=== PATIENT | female | born 2000 | race Caucasian/White ===

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

== ENCOUNTER → 2021-12-08 | Emergency (ER) | payer MEDICAID ==
[~2021-12-08] VITALS: Ht 170 cm; Wt 59.0 kg
[~2021-12-08] MED LIST changes: -ACET-77 PO; +ACET-78 PO; +KETOROLAC 60 MG/2 ML VIAL IM ONE; +ONDA4TAB11 PO; +ONDANSETRON 4 MG (ZOFRAN) ORAL DISSOLVE TAB PO STA; -PANT40TA3; +PANT40TA52
--- NOTE | 2021-12-08 13:31 | ED Headache ---
General Stated Complaint: MIGRAINE,N/V Source: patient Exam Limitations: no limitations History of Present Illness Date Seen by Provider: Dec 08, 2021 Time Seen by Provider: 13:09 Initial Comments The patient presents to the ER by private conveyance from home with chief complaint of a migraine headache for the past 1 day with nausea sweats chills body aches. She says is worse than her typical headache. Typically she can take 2 Tylenol 500 mg and will break her migraine but this persisted throughout the night. She has had no known sick exposures. She is not been vaccinated for COVID but she has for influenza. She is not having diarrhea. She is not having a cough or shortness of air. She has a strong history of migraines that are similar to this headache. No urinary symptoms. Her last menstrual period was November 16 however she is very irregular typically going 2 months between periods. She has been off of contraceptives for at least 6 months. She has a history of IBS and asthma. She typically follows with Dr. Aceves and Pebbles PANDYA at [facility]. Allergies and Home Medications Allergies Coded Allergies: latex (Verified Allergy, Mild, Rash, 05/20/19) Patient Home Medication List Home Medication List Reviewed: Yes Review of Systems Review of Systems Constitutional: No chills, No diaphoresis, No fever, No malaise Eyes: Denies Blindness, Denies Drainage Ears, Nose, Mouth, Throat: denies ear pain, denies ear discharge Respiratory: No cough, No short of breath Cardiovascular: No chest pain, No edema Gastrointestinal: No abdominal pain, No constipation, No diarrhea; nausea, vomiting Genitourinary: No discharge, No dysuria, No frequency, No hematuria Musculoskeletal: No back pain, No joint pain All Other Systems Reviewed Negative Unless Noted: Yes Past Pcqrwtf-Qctjkv-Eqbzrv Hx Patient Social History Tobacco Use?: No Use of E-Cig and/or Vaping dev: No Substance use?: No Immunizations Up To Date Tetanus Booster (TDap): Less than 5yrs PED Vaccines UTD: Yes Seasonal Allergies Seasonal Allergies: No Past Medical History Surgeries: No Respiratory: Yes Asthma Cardiac: No Heart Murmur Neurological: Yes Reproductive Disorders: No Sexually Transmitted Disease: No Genitourinary: No Gastrointestinal: No Gastroesophageal Reflux Musculoskeletal: No Endocrine: No HEENT: No Cancer: No Psychosocial: No Integumentary: No Blood Disorders: No Adverse Reaction/Blood Tranf: No Family Medical History Alcoholism (mother) Substance abuse (mother) Physical Exam Vital Signs Vital Signs - First Documented 12/08/21 13:33 Temp 35.8 Pulse 96 Resp 16 B/P (MAP) 124/83 (97) Pulse Ox 95 O2 Delivery Room Air Capillary Refill : Height, Weight, BMI Height: 5'7.00" Weight: 157lbs. 0.0oz. 71.212404qz; 25.00 BMI Method:Stated General Appearance: WD/WN, no apparent distress HEENT: PERRL/EOMI, normal ENT inspection, TMs normal; No pharynx normal (Mild retropharyngeal erythema); other (Her hair is wet from bathing) Neck: full range of motion, supple, normal inspection Cardiovascular: normal peripheral pulses, regular rate, rhythm Respiratory: lungs clear, normal breath sounds, no respiratory distress, no accessory muscle use Psychiatric: alert, oriented x 3 Coordination/Gait: normal gait Procedures/Interventions Suture Size: 5-0 Progress/Results/Core Measures Results/Orders Lab Results Laboratory Tests Test 12/08/21 13:26 Range/Units Influenza Type A (RT-PCR) Not Detected Not Detecte Influenza Type B (RT-PCR) Not Detected Not Detecte SARS-CoV-2 RNA (RT-PCR) Not Detected Not Detecte My Orders Orders - SYDNIE HUANG Ketorolac Injection (Toradol Injection) (12/08/21 13:30) Ondansetron Oral Dissolve Tab (Zofran (12/08/21 13:22) Covid 19 Inhouse Test (12/08/21 13:22) Influenza A And B By Pcr (12/08/21 13:22) Urine Bedside (12/08/21 13:22) Medications Given in ED Current Medications Medications Dose Ordered Sig/Lizzie Route Start Time Stop Time Status Last Admin Dose Admin Ketorolac Tromethamine 60 mg ONCE ONCE IM 12/08/21 13:30 12/08/21 13:31 DC 12/08/21 13:32 60 MG Vital Signs/I&O 12/08/21 13:33 Temp 35.8 Pulse 96 Resp 16 B/P (MAP) 124/83 (97) Pulse Ox 95 O2 Delivery Room Air Progress Progress Note #1: Time: 13:32 Progress Note Concern for all viral syndrome causing the migraine headache so we will give her some Toradol Zofran and tested for Covid and influenza. Lungs are clear no signs of asthma attack. Bedside . No urinary symptoms so no UA. Bedside is negative Progress Note #2: Time: 14:01 Progress Note Patient was laying down with her eyes closed. She sets up smiling stating that she is feeling significantly better. No nausea. She is ready to go home. We will provide her with some Zofran and a note for work tomorrow if she needs it. Departure Impression Primary Impression: Migraine Qualified Codes: G43.001 - Migraine without aura, not intractable, with status migrainosus Additional Impression: Viral syndrome Disposition: HOME, SELF-CARE Condition: Improved Departure-Patient Inst. Decision time for Depature: 14:01 Referrals: [facility] (PCP/Family) Primary Care Physician Patient Instructions: Migraines (DC) Add. Discharge Instructions: Drink plenty of fluids. Zofran 1 tablet every 6 hours under the tongue as necessary for nausea and or vomiting. Tylenol and ibuprofen as necessary for headache. Get some sleep and if you needed there will be a work note to take tomorrow off as well. Scripts Ondansetron (Ondansetron Odt) 4 Mg Tab.rapdis 4 MG PO Q6H PRN for NAUSEA/VOMITING, #8 TAB 0 Refills Prov: SYDNIE HUANG 12/08/21 Work/School Note: Work Release Form Date Seen in the Emergency Department: Dec 08, 2021 Return to Work: Dec 10, 2021 Restrictions: No Restrictions SYDNIE HUANG Dec 08, 2021 13:31
[2021-12-08 14:07] VITALS: BP 119/80
== END ==
LOC: EDUNIT# 12:59 → ER 13:01
DX: B34.9 Viral infection, unspecified (principal); G43.001 Migraine without aura, not intractable, with status migrainosus; J45.909 Unspecified asthma, uncomplicated; Z91.040 Latex allergy status; Z20.822 Contact with and (suspected) exposure to COVID-19
CPT/HCPCS: 84703; 87636; 99284

== ENCOUNTER 2022-04-29 13:53 | Emergency (ER) | payer MEDICAID ==
[~2022-04-29 13:53] MED LIST changes: -KETOROLAC 60 MG/2 ML VIAL IM ONE; -ONDANSETRON 4 MG (ZOFRAN) ORAL DISSOLVE TAB PO STA
[2022-04-29 14:08] VITALS: BP 115/77
--- NOTE | 2022-04-29 14:36 | ED Lower Extremity ---
General Chief Complaint: Lower Extremity Stated Complaint: L HIP/LEG PAIN Nursing Triage Note: PT AMB TO FT WITH C/O L HIP PAIN AFTER FALLING DOWN 6 STAIRS AROUND 0700 THIS MORNING. PT TRIED TAKING TYLENOL WITHOUT RELIEF Source: patient Exam Limitations: no limitations History of Present Illness Date Seen by Provider: Apr 29, 2022 Time Seen by Provider: 14:33 Initial Comments Patient is a 21-year-old female presents ED for left lateral hip, left thigh pain. Fell down the stairs early this morning. Fell down 6 steps landing on her left hip. Has been able to ambulate and walk. Took Tylenol at home without much improvement. Denies any swelling or bruising. She has pain with any movement or bearing weight. Denies hitting her head, loss of consciousness, neck pain, back pain. No distal numbness and tingling to the lower extremities. Allergies and Home Medications Allergies Coded Allergies: latex (Verified Allergy, Mild, Rash, 05/20/19) Patient Home Medication List Home Medication List Reviewed: Yes Ibuprofen (Ibuprofen) 600 Mg Tablet, 600 MG PO Q6H Prescribed by: ANA JOY on 04/29/22 1530 Ondansetron (Ondansetron Odt) 4 Mg Tab.rapdis, 4 MG PO Q6H PRN for NAUSEA /VOMITING Prescribed by: SYDNIE HUANG on 12/08/21 1403 Review of Systems Constitutional: No chills, No diaphoresis EENTM: No ear pain, No blurred vision, No double vision Respiratory: No cough Cardiovascular: No chest pain Gastrointestinal: No abdominal pain, No diarrhea, No nausea, No vomiting Genitourinary: No decreased output, No discharge Musculoskeletal: joint pain; No joint swelling; muscle pain, muscle stiffness All Other Systems Reviewed Negative Unless Noted: Yes Past Xvgauaf-Vjudds-Wmrvbx Hx Patient Social History Tobacco Use?: No Substance use?: Yes Substance type: Marijuana Substance frequency: Once in a while Alcohol Use?: Yes Alcohol type: Hard Liquor Alcohol Frequency: Once in a while Pt feels they are or have been: No Immunizations Up To Date Tetanus Booster (TDap): Less than 5yrs PED Vaccines UTD: Yes Influenza Vaccine Up-to-Date: Yes; Up-to-Date Seasonal Allergies Seasonal Allergies: No Past Medical History Surgery/Hospitalization HX: HX ASTHMA, IBS Surgeries: No Respiratory: Yes Asthma Cardiac: Yes Heart Murmur Neurological: Yes Last Menstrual Period: Apr 22, 2022 Reproductive Disorders: No Sexually Transmitted Disease: No Genitourinary: No Gastrointestinal: No Gastroesophageal Reflux Musculoskeletal: No Endocrine: No HEENT: No Cancer: No Psychosocial: No Integumentary: No Blood Disorders: No Adverse Reaction/Blood Tranf: No Family Medical History Alcoholism (mother) Substance abuse (mother) Physical Exam Vital Signs Vital Signs - First Documented 04/29/22 14:08 Temp 36.7 Pulse 87 Resp 14 B/P (MAP) 115/77 (90) Capillary Refill : Height, Weight, BMI Height: 5'7.00" Weight: 157lbs. 0.0oz. 71.652257ct; 19.00 BMI Method:Stated General Appearance: WD/WN, no apparent distress HEENT: PERRL/EOMI, normal ENT inspection, TMs normal, pharynx normal Neck: non-tender, full range of motion, supple, normal inspection Cardiovascular: regular rate, rhythm, no edema, no gallop, no JVD Respiratory: chest non-tender, lungs clear, normal breath sounds, no respiratory distress, no accessory muscle use Gastrointestinal: normal bowel sounds, non tender Back: normal inspection, no CVA tenderness, no vertebral tenderness Hips: left hip bone tenderness, left hip limited range of motion, left hip soft tissue tenderness Knees: bilateral knee non-tender, bilateral knee normal inspection, bilateral knee normal range of motion, bilateral knee no evidence of injury Ankles: bilateral ankle non-tender, bilateral ankle normal inspection, bilateral ankle no evidence of injury Feet: bilateral foot non-tender, bilateral foot normal inspection Neurologic/Psychiatric: kaiawhina II-XII nml as tested, no motor/sensory deficits, alert, normal mood/affect, oriented x 3 Skin: normal color, warm/dry Procedures/Interventions Suture Size: 5-0 Progress/Results/Core Measures Results/Orders Lab Results Laboratory Tests Test 04/29/22 15:00 Range/Units Urine Color YELLOW Urine Clarity CLEAR Urine pH 6.0 5-9 Urine Specific [place] >=1.030 1.016-1.022 Urine Protein NEGATIVE NEGATIVE Urine Glucose (UA) NEGATIVE NEGATIVE Urine Ketones NEGATIVE NEGATIVE Urine Nitrite NEGATIVE NEGATIVE Urine Bilirubin NEGATIVE NEGATIVE Urine Urobilinogen 0.2 < = 1.0 MG/DL Urine Leukocyte Esterase NEGATIVE NEGATIVE Urine RBC (Auto) NEGATIVE NEGATIVE Urine RBC NONE /HPF Urine WBC NONE /HPF Urine Squamous Epithelial Cells 2-5 /HPF Urine Crystals PRESENT H /LPF Urine Amorphous Sediment MOD ABNER URATES H /LPF Urine Bacteria NEGATIVE /HPF Urine Casts NONE /LPF Urine Mucus SMALL H /LPF Urine Culture Indicated NO Urine Test NEGATIVE NEGATIVE My Orders Orders - JOVANNY TRINIDAD Urinalysis (04/29/22 14:13) Hcg,Qualitative Urine (04/29/22 14:13) Hip, Left, 2 Views (04/29/22 14:31) Femur, Left, 2 Views (04/29/22 14:31) Hydrocodone/Apap 5/325 Tablet (Lortab 5 (04/29/22 14:45) Medications Given in ED Current Medications Medications Dose Ordered Sig/Lizzie Route Start Time Stop Time Status Last Admin Dose Admin Acetaminophen/ Hydrocodone Bitart 1 ea ONCE ONCE PO 04/29/22 14:45 04/29/22 14:46 DC 04/29/22 14:41 1 EA Vital Signs/I&O 04/29/22 14:08 Temp 36.7 Pulse 87 Resp 14 B/P (MAP) 115/77 (90) Blood Pressure Mean: 90 Departure Communication (PCP) X-ray were negative for fracture. She is able to stand and bear weight but with some pain and discomfort. Normal range of motion. Was given dose of pain medication. This appears to be more muscle contusion bone contusion. Due to her being able to walk most unlikely a fracture. Discussed with patient if pain progress or worsen may consider further imaging such as CT scan or MRI. Outpatient orthopedic follow-up. return precaution were discussed with patient Impression Primary Impression: Hip pain Disposition: 01 HOME, SELF-CARE Condition: Stable Departure-Patient Inst. Decision time for Depature: 15:29 Referrals: [facility] (PCP/Family) Primary Care Physician NHI ACEVEDO MD Patient Instructions: Hip Pain (DC) Scripts Ibuprofen (Ibuprofen) 600 Mg Tablet 600 MG PO Q6H for PAIN, #16 TAB 0 Refills Prov: JOVANNY TRINIDAD 04/29/22 Work/School Note: Work Release Form Date Seen in the Emergency Department: Apr 29, 2022 Return to Work: May 02, 2022 JOVANNY TRINIDAD Apr 29, 2022 14:36
[2022-04-29] MEDS ORDERED: HYDROcodone/APAP 5 MG/325 MG (LORTAB) TAB PO ONE (14:45)
[2022-04-29 15:18] LABS: BILIRUBIN,URINE NEGATIVE (NEGATIVE); CLARITY,URINE CLEAR; COLOR,URINE YELLOW; GLUCOSE, URINE (UA) NEGATIVE (NEGATIVE); KETONES,URINE NEGATIVE (NEGATIVE); LEUKOCYTE ESTERASE ,URINE NEGATIVE (NEGATIVE); NITRITE,URINE NEGATIVE (NEGATIVE); PROTEIN,URINE NEGATIVE (NEGATIVE)
--- NOTE | 2022-04-29 15:18 | Diagnostic Imaging Report ---
INDICATION: Fall, with left femur region pain. AP and lateral views of the left femur are obtained. FINDINGS: No acute fracture or dislocation is identified. No abnormal lytic or sclerotic focus is seen, and there is no radiopaque foreign body. IMPRESSION: No acute abnormality. Dictated by: Dictated on workstation # [id number]
--- NOTE | 2022-04-29 15:18 | Diagnostic Imaging Report ---
INDICATION: Fall, with left hip pain. AP and frog-leg views of the left hip are obtained. FINDINGS: No acute fracture or dislocation is identified. No abnormal lytic or sclerotic focus is seen, and there is no radiopaque foreign body. IMPRESSION: No acute abnormality. Dictated by: Dictated on workstation # [id number]
[2022-04-29] MEDS ORDERED: IBUP-1773 PO (15:30)
[2022-04-29 15:40] LABS: BACTERIA,URINE NEGATIVE /HPF
[2022-04-29 15:41] LABS: AMORPHOUS SEDIMENT,UR MOD AMOR URATES /LPF
== END 2022-04-29 15:38 | disposition home or self-care (01) ==
LOC: EDUNIT# 13:53 → ER 13:55
DX: M25.552 Pain in left hip (principal); Z28.310 Unvaccinated for COVID-19; W10.9XXA Fall (on) (from) unspecified stairs and steps, initial encounter
CPT/HCPCS: 73502; 73552; 81000; 84703; 99283

== ENCOUNTER 2022-09-29 20:12 | Emergency (ER) | payer MEDICAID ==
[~2022-09-29 20:12] MED LIST changes: +IBUP-1773 PO
[2022-09-29] MEDS ORDERED: IBUPROFEN 600 MG (MOTRIN) TAB PO ONE (20:45)
[2022-09-29] MEDS ORDERED: ONDANSETRON 4 MG (ZOFRAN) ORAL DISSOLVE TAB PO ONE (20:45)
--- NOTE | 2022-09-29 21:03 | ED General ---
General Chief Complaint: Cough/Cold/Flu Symptoms Stated Complaint: MIGRAINE/CHILLS/WEAKNESS/NAUSEA/EARACHE Nursing Triage Note: PT ARRIVAL TO ER VIA PRIVATE VEHICLE FROM HOME WITH COMPLAINT OF PAIN BEHIND EYES WITHOUT VISION CHANGES, NAUSEA, BODY ACHES, CHILLS SINCE EARLY YESTERDAY MORNING. PT DENIES COVID OR FLU VACCINATIONS. DENIES FEVER. PATIENT TOOK EXCEDERIN AT HOME WITH SOME BRIEF RELIEF, BUT PAIN COMES RIGHT BACK. PAIN RATED AT A 7/10 AND DESCRIBED A PRESSURE. History of Present Illness Date Seen by Provider: Sep 29, 2022 Time Seen by Provider: 20:20 Initial Comments Patient is a 20-year-old female who presents to the emergency department for evaluation of headache, nausea, body aches, and chills began yesterday morning. Patient states she had a subjective fever yesterday morning but feels like she has not had one since. She has not formally checked her temperature. She denies any known sick contacts. She states she took some Excedrin for her headache but states that did not help for very long. She states her LMP ended approximately 2 days ago. Denies any diarrhea. Allergies and Home Medications Allergies Coded Allergies: latex (Verified Allergy, Mild, Rash, 05/20/19) Patient Home Medication List Home Medication List Reviewed: Yes Ibuprofen (Ibuprofen) 600 Mg Tablet, 600 MG PO Q6H Prescribed by: ANA JOY on 04/29/22 1530 Ondansetron (Ondansetron Odt) 4 Mg Tab.rapdis, 4 MG PO Q6H PRN for NAUSEA/VOMITING Prescribed by: SYDNIE HUANG on 12/08/21 1403 Review of Systems Review of Systems Constitutional: see HPI, chills, fever, malaise EENTM: no symptoms reported Respiratory: no symptoms reported Cardiovascular: no symptoms reported Gastrointestinal: see HPI, nausea Genitourinary: no symptoms reported Skin: no symptoms reported Psychiatric/Neurological: No Symptoms Reported Past Axngugz-Rlxdqu-Cdhloi Hx Patient Social History Tobacco Use?: No Use of E-Cig and/or Vaping dev: Yes E-Cig or Vaping type used: Nicotine Use of E-Cig and/or Vaping Kervin: Current Everyday User Substance use?: No Alcohol Use?: No Pt feels they are or have been: No Immunizations Up To Date Tetanus Booster (TDap): Less than 5yrs PED Vaccines UTD: Yes Influenza Vaccine Up-to-Date: No; Not Current Seasonal Allergies Seasonal Allergies: No Past Medical History Surgery/Hospitalization HX: HX ASTHMA, IBS Surgeries: No Respiratory: Yes Asthma Cardiac: Yes Heart Murmur Neurological: Yes Reproductive Disorders: No Sexually Transmitted Disease: No Genitourinary: No Gastrointestinal: No Gastroesophageal Reflux Musculoskeletal: No Endocrine: No HEENT: No Cancer: No Psychosocial: No Integumentary: No Blood Disorders: No Adverse Reaction/Blood Tranf: No Family Medical History Alcoholism (mother) Substance abuse (mother) Physical Exam Vital Signs Vital Signs - First Documented 09/29/22 20:20 Pulse 87 Resp 18 B/P (MAP) 95/66 (76) Pulse Ox 97 O2 Delivery Room Air Capillary Refill : Less Than 3 Seconds Height, Weight, BMI Height: 5'7.00" Weight: 157lbs. 0.0oz. [id number]; 19.00 BMI Method:Stated General Appearance: No Apparent Distress, WD/WN HEENT: PERRL/EOMI, TMs Normal, Normal ENT Inspection, Pharynx Normal Neck: Full Range of Motion, Normal Inspection, Non Tender, Supple Respiratory: Chest Non Tender, Lungs Clear, Normal Breath Sounds, No Accessory Muscle Use, No Respiratory Distress Cardiovascular: Regular Rate, Rhythm Gastrointestinal: Non Tender, Soft Neurologic/Psychiatric: Alert, Oriented x3, No Motor/Sensory Deficits, Normal Mood/Affect Skin: Normal Color, Warm/Dry Procedures/Interventions Suture Size: 5-0 Progress/Results/Core Measures Suspected Sepsis SIRS Temperature: Pulse: 87 Respiratory Rate: 18 Blood Pressure 95 /66 Mean: 76 Results/Orders Lab Results Laboratory Tests Test 09/29/22 20:47 Range/Units Influenza Type A (RT-PCR) Detected H Not Detecte Influenza Type B (RT-PCR) Not Detected Not Detecte SARS-CoV-2 RNA (RT-PCR) Not Detected Not Detecte My Orders Orders - MIRNA SOSA APRN Covid 19 Inhouse Test (09/29/22 20:32) Influenza A And B By Pcr (09/29/22 20:32) Isolation Central Supply Req (09/29/22 20:32) Ibuprofen Tablet (Motrin Tablet) (09/29/22 20:45) Ondansetron Oral Dissolve Tab (Zofran (09/29/22 20:45) Medications Given in ED Current Medications Medications Dose Ordered Sig/Lizzie Route Start Time Stop Time Status Last Admin Dose Admin Ibuprofen 600 mg ONCE ONCE PO 09/29/22 20:45 09/29/22 20:46 DC 09/29/22 20:46 600 MG Ondansetron HCl 4 mg ONCE ONCE PO 09/29/22 20:45 09/29/22 20:46 DC 09/29/22 20:46 4 MG Vital Signs/I&O 09/29/22 20:20 Pulse 87 Resp 18 B/P (MAP) 95/66 (76) Pulse Ox 97 O2 Delivery Room Air Capillary Refill : Less Than 3 Seconds Blood Pressure Mean: 76 Progress Note : Progress Note Patient is nontoxic and well-hydrated on exam. Vital signs are reassuring. No adventitious lung sounds or increased work of breathing noted on exam. No nuchal rigidity appreciated. Patient was ambulatory to the room without issue. She has moist mucous membranes or brisk cap refill with no clinical evidence of marked dehydration. Is not a surgical infection noted on exam. Viral testing obtained. Patient tested positive for influenza A. Discussed supportive care and anticipatory guidance. Follow-up with PCP. Return precautions for symptomology discussed. Patient verbalized understanding Departure Impression Primary Impression: Influenza A Disposition: HOME, SELF-CARE Condition: Stable Departure-Patient Inst. Decision time for Depature: 21:35 Referrals: [facility] [place] (PCP/Family) Primary Care Physician Patient Instructions: Flu, Adult ED Scripts Ibuprofen (Ibuprofen) 600 Mg Tablet 600 MG PO Q6H PRN for PAIN-MILD for 5 Days, #20 TAB 0 Refills Prov: MIRNA SOSA APRN 09/29/22 Ondansetron (Ondansetron Odt) 4 Mg Tab.rapdis 4 MG SL Q4H PRN for NAUSEA/VOMITING for 7 Days, #30 TAB 0 Refills Prov: MIRNA SOSA APRN 09/29/22 MIRNA SOSA APRN Sep 29, 2022 21:03
[2022-09-29] MEDS ORDERED: ONDA4TAB11 SL (21:39)
[2022-09-29] MEDS ORDERED: IBUP-1773 PO (21:40)
[2022-09-29 21:46] VITALS: BP 100/65
== END 2022-09-29 21:48 | disposition home or self-care (01) ==
LOC: EDUNIT# 20:12 → ER 20:14
DX: J10.1 Influenza due to other identified influenza virus with other respiratory manifestations (principal); F17.290 Nicotine dependence, other tobacco product, uncomplicated; Z20.822 Contact with and (suspected) exposure to COVID-19; Z28.310 Unvaccinated for COVID-19
CPT/HCPCS: 87636; 99283